=== PATIENT | female | born 1975 | race Hispanic/Latino ===

== ENCOUNTER 2017-08-25 08:29 | Emergency (ER) | payer SELFPAY ==
[~2017-08-25] VITALS: Ht 162.6 cm; Wt 100.0 kg
[~2017-08-25 08:29] MED LIST: NO MEDS; ONDANSETRON4 MG OR; ULTRAM50 MG OR
[2017-08-25] MEDS ORDERED: CELEBREX100 M1 PO ×2 (08:46)
[2017-08-25] MEDS ORDERED: LORTAB 5-325 MG1 TAB PO (09:20)
[2017-08-25] MEDS ORDERED: MOTRIN800 MG PO (09:20)
[2017-08-25 10:25] VITALS: BP 138/78
== END 2017-08-25 10:25 | disposition home or self-care (01) | DRG 563 ==
LOC: ED 08:29
DX: S83.8X2A Sprain of other specified parts of left knee, initial encounter (principal); X50.1XXA Overexertion from prolonged static or awkward postures, initial encounter; Y92.9 Unspecified place or not applicable

== ENCOUNTER 2023-06-10 10:02 | Emergency (ER) | payer BC ==
[~2023-06-10] VITALS: Ht 162.6 cm; Wt 104.3 kg
[~2023-06-10 10:02] MED LIST changes: +CELEBREX100 M1 PO; +LORTAB 5-325 MG1 TAB PO; +MOTRIN800 MG PO
[2023-06-10 10:11] VITALS: BP 136/67
[2023-06-10 10:16] VITALS: BP 126/80
[2023-06-10 10:31] VITALS: BP 120/76
[2023-06-10 10:46] VITALS: BP 145/70
[2023-06-10] MEDS ORDERED: AMOX/K CLAV875 M1 PO (11:35)
[2023-06-10] MEDS ORDERED: CIPRODEX1 ML OT (11:35)
[2023-06-10] MEDS ORDERED: FLONASE AL50 MCG/ACT (11:35)
[2023-06-10 12:09] VITALS: BP 139/79
[2023-06-10 12:11] VITALS: BP 139/79
== END 2023-06-10 12:12 | disposition home or self-care (01) | DRG 156 ==
LOC: ED 10:02
DX: H60.92 Unspecified otitis externa, left ear (principal)

== ENCOUNTER 2023-06-15 17:00 | Emergency (ER) | payer BC ==
[~2023-06-15] VITALS: Ht 162.6 cm; Wt 113.4 kg
[2023-06-15] VITALS (7 sets, daily range): BP systolic 117–147; BP diastolic 65–86
[~2023-06-15 17:00] MED LIST changes: +AMOX/K CLAV875 M1 PO; +CIPRODEX1 ML OT; +FLONASE AL50 MCG/ACT
[2023-06-15] MEDS ORDERED: OMEPRAZOLE DR40 MG PO (17:52)
[2023-06-15] MEDS ORDERED: PAXLOVID PO (18:30)
== END 2023-06-15 18:54 | disposition home or self-care (01) | DRG 179 ==
LOC: ED 17:00 → EDBD 17:00 → ED 18:11
DX: U07.1 COVID-19 (principal); H92.02 Otalgia, left ear

== ENCOUNTER 2024-01-14 09:05 | Day surgery (SDC) | payer BC ==
[~2024-01-14] VITALS: Ht 162.6 cm; Wt 111.6 kg
[~2024-01-14 09:05] MED LIST changes: +LIDOCAINE HCL 2% 2ML SDV IV ONE; +MELOXICAM7.5 MG PO; +OMEPRAZOLE DR40 MG PO; +PAXLOVID PO; +PROPOFOL 200 MG/20 ML VIAL IV ONE; +ROCURONIUM BROMIDE 10 MG/ML 5ML VIAL IV ONE; +SUCCINYLCHOLINE CHLORIDE 20 MG/ML 10ML VIAL IV ONE; +SUGAMMADEX SODIUM 200 MG/2 ML SDV IV ONE
[2024-01-14] MEDS ORDERED: FAMOTIDINE 10MG/ML 2ML SDV IV ONE (09:10)
[2024-01-14] MEDS ORDERED: SODIUM CHLORIDE 0.9% 100 ML IV ONE (09:10)
[2024-01-14] MEDS ORDERED: LACTATED RINGER'S 1,000 ML IV ONE ×2 (09:10→14:47)
[2024-01-14] MEDS ORDERED: ceFAZolin Sodium 2 GM/VIAL SDV ONE (09:10)
[2024-01-14] MEDS ORDERED: LIDOcaine HCl 1% (Local Anesth.) 20 ML VIAL ONE (11:17)
[2024-01-14] MEDS ORDERED: Iopamidol 300 (Isovue) 61% 100ML SDV IV ONE (11:38)
[2024-01-14] MEDS ORDERED: GLUCAGON HCL (Rdna) 1 MG VIAL ONE (11:38)
[2024-01-14] MEDS ORDERED: KETOROLAC TROMETHAMINE 30 MG/ML SDV ONE (13:35)
[2024-01-14] MEDS ORDERED: ACETAMINOPHEN 100 ML IV ONE (13:35)
[2024-01-14] MEDS ORDERED: PERCOCET 5/321 COMBO PO (13:37)
[2024-01-14] MEDS ORDERED: STERILE WATER FOR IRRIGATION 1,000 ML BTL IR ONE (13:45)
[2024-01-14] MEDS ORDERED: SODIUM CHLORIDE 1,000 ML BTL IR ONE (13:45)
[2024-01-14] MEDS ORDERED: SODIUM CHLORIDE 0.9% 1,000 ML IV ONE (13:45)
[2024-01-14] MEDS ORDERED: HYDROmorphone HCL 2 MG/AMP ONE (14:08)
[2024-01-14] MEDS ORDERED: ONDANSETRON HCl 4 MG/2 ML SDV ONE (14:45)
[2024-01-14 15:45] VITALS: BP 141/85
== END 2024-01-14 15:35 | disposition home or self-care (01) | DRG 419 ==
LOC: ORM 09:05
PROVIDERS: ATTEND Surgery
PROC: 0FT44ZZ Resection of Gallbladder, Percutaneous Endoscopic Approach (ICD-10-PCS; principal; 2024-01-14)
DX: K80.10 Calculus of gallbladder with chronic cholecystitis without obstruction (principal)
CPT/HCPCS: J0131; J0690; J1610; Q9966